=== PATIENT | male | born 1995 | race Caucasian/White ===

== ENCOUNTER 2016-11-27 22:46 | Emergency (ER) | payer MEDICARE ==
[~2016-11-27] VITALS: Ht 177.8 cm; Wt 68.9 kg
[2016-11-27 23:00] VITALS: BP 142/90
--- NOTE | 2016-11-28 01:32 | NUR ---
PATIENT PRESENTS TO ED WITH INGROWN HAIR TO THE LEFT CHEEK X 3 WEEKS WITH PUS . PT DENIES N/V/D BUT C/O OF DIZZINESS ; HX OF ULCERITIS COLLITIS; SKIN IS PINK/WARM/DRY; AAOX4 WITH EVEN AND STEADY GAIT; LUNGS CLEAR BL; HR EVEN AND REGULAR; PT DENIES ANY FEVER, CP, SOB, OR COUGH AT THIS TIME; PATIENT STATES PAIN OF 8/10 AT THIS TIME; VSS; PATIENT POSITIONED FOR COMFORT; HOB ELEVATED; BEDRAILS UP X2; BED DOWN. ER MD MADE AWARE OF PT STATUS. ALLERGIC TO SULFA AND CIPRO
--- NOTE | 2016-11-28 02:23 | NUR ---
Patient being evaluated by physician DR DARLING at bedside.
[2016-11-28 03:20] VITALS: BP 136/89
--- NOTE | 2016-11-28 03:20 | NUR ---
Patient discharged with v/s stable. Written and verbal after care instructions given and explained. Patient alert, oriented and verbalized understanding of instructions. Ambulatory with steady gait. All questions addressed prior to discharge. ID band removed. Patient advised to follow up with PMD. Rx of DOXYCYCLINE 100MG given. Patient educated on indication of medication including possible reaction and side effects. Opportunity to ask questions provided and answered.
== END 2016-11-28 03:20 | disposition home or self-care (01) ==
LOC: MED 22:46
DX: K12.2 Cellulitis and abscess of mouth (principal); Z88.1 Allergy status to other antibiotic agents; Z88.2 Allergy status to sulfonamides